=== PATIENT | female | born 1945 | race Caucasian/White ===

== ENCOUNTER → 2016-07-22 | Outpatient (CLI) | payer OTHER ==
[~2016-07-22] MED LIST: ASPIR-LOW81 MG ORAL; ASPIRIN EC81 MG ORAL; DEXILANT60 MG ORAL; EXCEDRIN EXTRA1 EAC1 PO; NAPROXEN250 MG ORAL; VITAMIN D1000 UNI1 ORAL
--- NOTE | 2016-07-22 14:55 | GI Progress Note ---
Assessment/Plan Problems: (1) GERD (gastroesophageal reflux disease) ICD Codes: K21.9 - Gastro-esophageal reflux disease without esophagitis SNOMED: 518438551 (2) Abdominal pain ICD Codes: R10.9 - Unspecified abdominal pain SNOMED: 25974880, 247398886 (3) Gastritis ICD Codes: K29.70 - Gastritis, unspecified, without bleeding SNOMED: 3722377 Status: stable Status Narrative Seen with Dr. Esposito. Assessment/Plan dexilant completed in Apr 2016 rx zantac prn RTC prn Subjective Gastrointestinal/Abdominal: Reports: abdominal pain - epigastric Subjective Rt hip Fx, needs THR completed dexilant in Apr Objective T 97.8 BP 141/76 P 92 Weight (Pounds): 167 General Appearance: no apparent distress, alert, overweight Cardiovascular: normal rate Respiratory/Chest: normal breath sounds, no respiratory distress Abdominal Exam: normal bowel sounds, non tender, soft Extremities: normal range of motion Danelle Zhang N.P. Jul 22, 2016 14:55
[2016-07-22 16:30] VITALS: BP 141/76
== END | disposition home or self-care (01) ==
LOC: PAN 11:04
DX: K21.9 Gastro-esophageal reflux disease without esophagitis (principal); K29.70 Gastritis, unspecified, without bleeding; R10.13 Epigastric pain
CPT/HCPCS: 99211